=== PATIENT | female | born 1990 | race Native Hawaiian/Other Pacific Islander ===

== ENCOUNTER 2018-05-02 13:49 | Emergency (ER) | payer OTHER ==
[2018-05-02 14:10] VITALS: O2SAT 100
--- NOTE | 2018-05-02 14:59 | ED PDOC ---
HPI: Female Pain Time Seen by Provider: 05/02/18 14:15 Chief Complaint (Nursing): Female Genitourinary Chief Complaint (Provider): Female Genitourinary History Per: Patient History/Exam Limitations: no limitations Onset/Duration Of Symptoms: Days Current Symptoms Are (Timing): Still Present Additional Complaint(s): 27 y/o female with a PMHx of presents to the ED for evaluation of pelvic pain. Patient reports she is otherwise healthy and is approximately 7 weeks . Patient reports pelvic pain is intermittent and located on the right side. Patient reports pain lasts for a couple hours then goes away. Patient additionally reports of similar pain ten years ago when she was not . Patient states workup at that time was otherwise unremarkable. Patient also reports of a cheesy vaginal discharge that is chronic and resolves with monistat. Patient states she has begun care and vitamins. Denies loss of appetite, diarrhea, vomiting, urinary symptoms or vaginal bleeding. PANTRY WORKER: Hima Oliveira Last Menstral Period: 03/14/2018 : 1 Para: 0 Past Medical History Reviewed: Historical Data, Nursing Documentation, Vital Signs Vital Signs: Last Vital Signs Temp 98.4 F 05/02/18 14:07 Pulse 91 H 05/02/18 14:07 Resp 16 05/02/18 14:07 BP 137/72 05/02/18 14:07 Pulse Ox 100 05/02/18 14:07 - Medical History PMH: No Chronic Diseases - Surgical History Surgical History: No Surg Hx - Family History Family History: States: Diabetes, Hypertension - Social History Current smoker - smoking cessation education provided: No Alcohol: None Drugs: Denies - Allergies Allergies/Adverse Reactions: Allergies Allergy/AdvReac Type Severity Reaction Status Date / Time acetaminophen [From Tylenol] Allergy ITCHING Verified 05/02/18 14:10 Review of Systems ROS Statement: Except As Marked, All Systems Reviewed And Found Negative Gastrointestinal: Negative for: Vomiting, Diarrhea, Other (loss of appetite) Genitourinary Female: Positive for: Vaginal Discharge, Pelvic Pain. Negative for: Dysuria, Frequency, Hematuria, Vaginal Bleeding Physical Exam - Reviewed Nursing Documentation Reviewed: Yes Vital Signs Reviewed: Yes - Physical Exam Appears: Positive for: Non-toxic, No Acute Distress Head Exam: Positive for: ATRAUMATIC, NORMOCEPHALIC Skin: Positive for: Warm, Dry Eye Exam: Positive for: EOMI, PERRL ENT: Positive for: Pharynx Is (clear). Negative for: Tonsillar Exudate Neck: Positive for: Painless ROM, Supple Cardiovascular/Chest: Positive for: Regular Rate, Rhythm. Negative for: Murmur Respiratory: Positive for: Normal Breath Sounds. Negative for: Respiratory Distress Gastrointestinal/Abdominal: Positive for: Tenderness (to palpation of the right pelvic area. (+) McBurney's Point Tenderness. (-) German's Sign). Negative for : Mass, Guarding, Rebound Back: Positive for: Normal Inspection. Negative for: Decreased ROM Extremity: Positive for: Normal ROM. Negative for: Deformity Lymphatic: Negative for: Adenopathy Neurologic/Psych: Positive for: Alert. Negative for: Motor/Sensory Deficits - Laboratory Results Result Diagrams: 05/02/18 15:33 05/02/18 15:33 - ECG O2 Sat by Pulse Oximetry: 100 (RA) Pulse Ox Interpretation: Normal Medical Decision Making Medical Decision Making: Time: 1435 Impression: Early and pelvic pain. Differentials include but not limited to ectopic , ovarian cysts, UTI and round ligament pain. Plan: -- BMP -- Beta-HCG, Quantitative -- ED Urine Dipstick -- ED Urine -- CBC with differentials -- Chlamydia/GC RNA, TNA -- US OB Transvaginal Accession No. : [id number] Patient Name / ID : AZEB ROBERTSON / [id number] Exam Date : 05/02/2018 16:19:35 ( Approved ) Study Comment : Sex / Age : F / 27Y Creator : Kenyatta Lou MD Dictator : Kenyatta Lou MD Supervisor Beam Department : Bobbin Fixer : Kenyatta Lou MD Approver2 : Report Date : 05/02/2018 17:06:40 My Comment : Date of service: 05/02/2018 PROCEDURE: OB Pelvic Ultrasound HISTORY: early preg R pelvic pain r/o ectopic COMPARISON: None available. FINDINGS: UTERUS: Single Live intrauterine gestation. CRL measures 0.93 cm equivalent to 7 weeks and 0 day of gestational age. Gestational sac diameter measures 2.74 cm equivalent to 7 weeks and 4 days of gestational age. age (Ultrasound estimated): 7 weeks and 2 days Date of delivery (Ultrasound estimated) : 12/17/2018 Heart rate: 135 bpm. Kassi-gestational hemorrhage: None. Uterus measures 9.3 x 5.1 x 7.2 cm. No mass CERVIX: Long and closed. No cervical abnormality seen. RIGHT OVARY: Measures 5.6 x 4.7 x 5.0 cm. No mass. Normal flow. There is a 3.4 x 3.5 x 2.7 cm simple cyst and 2.8 x 2.6 x 2.7 cm simple cyst. LEFT OVARY: Measures 3.4 x 1.6 x 3.6 cm. No mass. Normal flow. FREE FLUID: None. OTHER FINDINGS: None. IMPRESSION: Single live intrauterine gestation with mean gestational age of 7 weeks and 2 days. The estimated date of delivery by ultrasound is 12/17/2018. The ultrasound dates correspond with the clinical dates. Two simple cysts in the right ovary, the larger measures 3.5 cm. No evidence for torsion. DW pt findings. Although pt has RLQ tenderness, she otherwise lacks clinical signs of appendicitis such as loss of appetite and fever. US findings are also c /w pt's site of pain. Stable for dc. Scribe Attestation: Documented by Nuno Bacon, acting as a scribe for Carmen Castillo MD. Provider Scribe Attestation: All medical record entries made by the Scribe were at my direction and personally dictated by me. I have reviewed the chart and agree that the record accurately reflects my personal performance of the history, physical exam, medical decision making, and the department course for this patient. I have also personally directed, reviewed, and agree with the discharge instructions and disposition. Disposition - Clinical Impression Clinical Impression: Ovarian cyst Counseled Patient/Family Regarding: Studies Performed, Diagnosis, Need For Followup - Disposition Referrals: Hima Oliveira DO [Staff Provider] - Disposition: Routine/Home Disposition Time: 17:40 Condition: GOOD Instructions: Ovarian Cyst (DC), - The Second Month
[2018-05-02 15:42] LABS: BASO % 0.1 % (0.0-2.0); EOS # 0.2 K/uL (0.0-0.7); EOS % 1.1 % (0.0-4.0); HEMOGLOBIN 12.7 g/dL (12.0-16.0); LYMPH % 13.3 % (20.0-40.0); MEAN CELL VOLUME 86.6 fl (81.0-99.0); MEAN CORPUSCULAR HEMOGLOBIN 30.2 pg (27.0-31.0); MEAN CORPUSCULAR HGB CONC 34.8 g/dL (33.0-37.0); MONO # 0.8 K/uL (0.0-0.8); MONO % 5.5 % (0.0-10.0); NEUT # 11.9 K/uL (1.8-7.0); RBC 4.2 Mil/uL (3.80-5.20); RED CELL DISTRIBUTION WIDTH 12.7 % (11.5-14.5); WHITE BLOOD COUNT 14.9 K/uL (4.8-10.8)
[2018-05-02 15:56] LABS: BLOOD UREA NITROGEN 12 mg/dl (7-17); GFR NON-AFRICAN AMERICAN > 60
--- NOTE | 2018-05-02 17:08 | US ---
Date of service: 05/02/2018 PROCEDURE: OB Pelvic Ultrasound HISTORY: early preg R pelvic pain r/o ectopic COMPARISON: None available. FINDINGS: UTERUS: Single Live intrauterine gestation. CRL measures 0.93 cm equivalent to 7 weeks and 0 day of gestational age. Gestational sac diameter measures 2.74 cm equivalent to 7 weeks and 4 days of gestational age. age (Ultrasound estimated): 7 weeks and 2 days Date of delivery (Ultrasound estimated) : 12/17/2018 Heart rate: 135 bpm. Kassi-gestational hemorrhage: None. Uterus measures 9.3 x 5.1 x 7.2 cm. No mass CERVIX: Long and closed. No cervical abnormality seen. RIGHT OVARY: Measures 5.6 x 4.7 x 5.0 cm. No mass. Normal flow. There is a 3.4 x 3.5 x 2.7 cm simple cyst and 2.8 x 2.6 x 2.7 cm simple cyst. LEFT OVARY: Measures 3.4 x 1.6 x 3.6 cm. No mass. Normal flow. FREE FLUID: None. OTHER FINDINGS: None. IMPRESSION: Single live intrauterine gestation with mean gestational age of 7 weeks and 2 days. The estimated date of delivery by ultrasound is 12/17/2018. The ultrasound dates correspond with the clinical dates. Two simple cysts in the right ovary, the larger measures 3.5 cm. No evidence for torsion.
[2018-05-02 17:59] VITALS: BP 132/70; PULSE 85; RESP 18; TEMP 98.2
== END 2018-05-02 17:50 | disposition home or self-care (01) ==
LOC: H.ER 13:49
DX: O26.891 Other specified pregnancy related conditions, first trimester (principal); N83.201 Unspecified ovarian cyst, right side; Z3A.01 Less than 8 weeks gestation of pregnancy

== ENCOUNTER 2018-12-06 03:35 | Inpatient (IN) | payer OTHER ==
[2018-12-06 03:50] VITALS: BMI 25.2
[2018-12-06] MEDS ORDERED: Lactated Ringer's 1,000 ML IV ONE (04:35)
[2018-12-06] MEDS ORDERED: Oxytocin 30 UNIT in NS 500 ml 30 UNITS/500 ML BAG IV ONE (04:37)
[2018-12-06] MEDS ORDERED: OXYTOCIN/0.9 % NS 20 UNIT/1,000 ML BAG IV SCH (04:45)
[2018-12-06] MEDS ORDERED: Lactated Ringer's 1,000 ML IV SCH (04:45)
--- NOTE | 2018-12-06 04:46 | OBADHP ---
Datetime: 12/06/2018 04:30 Admit Comment, IP Provider: 27 yo 38.1 wk present to [facility] Due to contraction q8min sinc e 1:50 12/06/18 and mucus plug, otherwise patient denies any vaginal bleeding, water gush. Pt report having GDM during controlled with diet, last glucose check 90 at 21:00 12/05/18. Pt report good fe mounika movement. last us was today pt report baby vertex. Allergy Tylenol ( itchy hand and feet) PCP: Dr. 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 4:12 Assessment and plan 27 yo 38.1 wk present to [facility] Due to contraction q8min sinc e 1:50 12/06/18 and mucus plug. W ill be admitted to Unit Vitals wnl strip reactive Patient is not in a cute distress Cervix 6, 90,-2 Will start LR 1 L at 999 Start LR 1L 125 Pit after placenta delivery Anesthesia on the case CBC and type in screen Initiate labor protocol Ysabri PGY1 Case discussed wtih Dr smith OB Hospitalist Addendum: Pt seen and examined by me. Agree a/ above. 27 yo G1 at 38+1 wks admitt ed to L_D in labor. FHT reactive. GBS negative. (ES) Pelvic Type - PN: Adequate Extremities - PN: Normal Abdomen - PN: Normal Back - PN: Normal Breast - PN: Not Done Lungs - PN: Normal Heart - PN: Normal Thyroid - PN: Normal Neurologic - PN: Normal HEENT - PN: Normal General - PN: Normal Presentation-Admit: Vertex FHR - Baseline A Provider: 140 Comments, ACOG Physical Exam: HEart no extra heart sound lung clear abd non tender BS+ Cervix 6,90,-2 Gestation - Est Wks by US: 38.1 Vital Signs Provider: Reviewed; Within Normal Limits IP Chief Complaint: Uterine contractions NICHD Variability Prov Fetus A: Moderate 6-25bpm NICHD Accel Fetus A IP Provider: [id number] FHR Category Provider Fetus A: Category I NICHD Decel Fetus A IP Provider: None Dilatation, Provider: 5 Effacement, Provider: 90 Station, Provider: -2 Genitourinary Exam: Normal DTRs - PN: Not Done EGA AdmitDate IP: 38.1 IP Adm Impression: Term, intrauterine Datetime: 12/06/2018 04:06 Membranes, Provider: Bulging IP Admit Plan: Admit to unit; Initiate labor protocol
[2018-12-06 05:40] LABS: BASO % 0.3 % (0.0-2.0); EOS # 0.1 K/uL (0.0-0.7); EOS % 0.5 % (0.0-4.0); HEMOGLOBIN 12.9 g/dL (12.0-16.0); LYMPH # 1.7 K/uL (1.0-4.3); LYMPH % 13.7 % (20.0-40.0); MEAN CELL VOLUME 86.6 fl (81.0-99.0); MEAN CORPUSCULAR HEMOGLOBIN 29.9 pg (27.0-31.0); MEAN CORPUSCULAR HGB CONC 34.6 g/dL (33.0-37.0); MEAN PLATELET VOLUME 9.4 fl (7.2-11.7); MONO # 0.6 K/uL (0.0-0.8); MONO % 5.3 % (0.0-10.0); NEUT # 9.7 K/uL (1.8-7.0); NEUT % 80.2 % (50.0-75.0); RBC 4.33 Mil/uL (3.80-5.20); RED CELL DISTRIBUTION WIDTH 13.7 % (11.5-14.5); WHITE BLOOD COUNT 12.1 K/uL (4.8-10.8)
[2018-12-06] MEDS ORDERED: Fentanyl/Bupivacaine HCl 250 ML EPI ONE (07:09)
[2018-12-06] MEDS ORDERED: Lidocaine 1% Inj (20ml) ONE (09:13)
--- NOTE | 2018-12-06 09:13 | OBPN ---
Datetime: 12/06/2018 09:07 IP Procedures: Sterile Vag Exam IP Progress Plan: Continue present management Contraction Comments Provider: q2-5min FHR - Baseline A Provider: 140s IP Progress Note Comment: Patient resting comfortably without complaints. heart tracing categ ory 1. Plan to continue current management. Discussed plan with patient and all patient questions a nswered. Vital Signs Provider: Reviewed; Within Normal Limits NICHD Accel Fetus A IP Provider: 15X15 FHR Category Provider Fetus A: Category I NICHD Variability Prov Fetus A: Moderate 6-25bpm Dilatation, Provider: 9 Effacement, Provider: 100 Station, Provider: 0 NICHD Decel Fetus A IP Provider: None Datetime: 12/06/2018 04:30 Gestation - Est Wks by US: 38.1 Presentation-Admit: Vertex Datetime: 12/06/2018 04:06 Membranes, Provider: Bulging
[2018-12-06] MEDS ORDERED: Oxycodone/Acetaminophen 5/325 mg Tab PO PRN ×4 (13:31→16:56)
[2018-12-06] MEDS ORDERED: Benzocaine/Menthol SPRAY TOP PRN ×2 (13:31→16:56)
--- NOTE | 2018-12-07 08:58 | OBDS ---
DELIVERY PERSONNEL Delivery Doctor: Dr. Zamora Level Vial Inspector: Emily Bahena RN; Comfort Vera RN Anesthesiologist: Dr. Petros Miller MATERNAL INFORMATION Delivery Anesthesia: Epidural Medications in Delivery: Pitocin 30mu in 500 ml Placenta Cultured: No Maternal Complications: None Provider Comments: 27 year old G1 admitted with spontaneous labor. Progressed to normal spontaneous vaginal delivery of live male infact at 12:51, position COLT over intact perineum with epidural anest hesia. was placed on maternal adbomen and delayed cord clamping performed. Apgars were 9_9, no excessive resuscitation was required. No meconium or nuchal cord present. Spontaneous delivery of pl acenta with 3-vessel cord. See laceration repair note. QBL 100cc. Attending Dr. Banerjee was present for delivery. Danni Zamora MD OB Fellow LABOR SUMMARY EDC: 12/19/2018 00:00 No. Babies in Womb: 0 Attempted: No Labor Anesthesia: Epidural LABOR INFORMATION Reason for Induction: Not Applicable Onset of Labor: 12/06/2018 01:45 Complete Dilatation: 12/06/2018 11:44 Oxytocin: N/A Group B Beta Strep: Negative Antibiotics # of Doses: 0 Antibiotics Time of Last Dose: n/a Steroids Given: None Reason Steroids Not Administered: Not Applicable MEMBRANES Membranes Rupture Method: Spontaneous Rupture of Membranes: 12/06/2018 08:07 Length of Rupture (hrs): 4.73 Amniotic Fluid Color: Clear Amniotic Fluid Amount: Small Amniotic Fluid Odor: Normal STAGES OF LABOR Stage 1 hrs: 9 Stage 1 min: 59 Stage 2 hrs: 1 Stage 2 min: 7 Stage 3 hrs: 0 Stage 3 min: 5 Total Time in Labor hrs: 11 Total Time in Labor min: 11 VAGINAL DELIVERY Episiotomy: None Laceration Extension: Second Degree Laceration Type: Perineal Laceration Repair: Yes Laceration Repair Note: A 2-0 Vicryl was used to repair the laceration in the usual fashion. Hemosta sis was adequate after repair. Initial Vag Sponge Count: 10 Final Vag Sponge Count: 10 Initial Vag Sharps Count: 2 Final Vag Sharps Count: 2 Sponge Count Correct: Yes Sharps Count Correct: Yes BABY A INFORMATION Delivery Date/Time: 12/06/2018 12:51 Method of Delivery: Vaginal Born in Route : No : N/A Forceps: N/A Vacuum Extraction: N/A Shoulder Dystocia : No SHOULDER DYSTOCIA BABY A Infant Delivery Date/Time: 12/06/2018 12:51 PRESENTATION/POSITION BABY A Presentation: Cephalic Cephalic Presentation: N/A Breech Presentation: N/A PLACENTA INFORMATION BABY A Placenta Delivery Time : 12/06/2018 12:56 Placenta Method of Delivery: Spontaneous Placenta Status: Delivered SCORES BABY A Heart Rate 1 min: >100 bpm Resp Effort 1 min: Good Cry Reflex Irritability 1 min: Cough or Sneeze or Pulls Away Muscle Tone 1 min: Active Motion Color 1 min: Body [place], Extremities Blue Resuscitation Effort 1 min: Tactile Stimulation SCORE 1 MIN: 9 Heart Rate 5 min: >100 bpm Resp Effort 5 min: Good Cry Reflex Irritability 5 min: Cough or Sneeze or Pulls Away Muscle Tone 5 min: Active Motion Color 5 min: Body [place], Extremities Blue Resuscitation Effort 5 min: N/A SCORE 5 MIN: 9 INFORMATION BABY A Gestational Age at Delivery: 38.1 Gestational Status: Term Infant Outcome : Liveborn Condition : Stable Sex: Male IDENTIFICATION/MEDS BABY A ID Band Number: [id number] ID Band Location: Left Leg; Left Arm WEIGHT/LENGTH BABY A Infant Birthweight (gms): 2880 Weight (lb): 6 Infant Weight (oz): 6 CORD INFORMATION BABY A No. Cord Vessels: 3 Nuchal Cord : N/A Cord Blood Taken: Yes Infant Suction: None
--- NOTE | 2018-12-07 08:58 | OBDS ---
DELIVERY PERSONNEL Delivery Doctor: Dr. Zamora Piano Sounding Board Matcher: Emily Bahena RN; Comfort Vera RN Anesthesiologist: Dr. Petros Miller MATERNAL INFORMATION Delivery Anesthesia: Epidural Medications in Delivery: Pitocin 30mu in 500 ml Placenta Cultured: No Maternal Complications: None Provider Comments: 27 year old G1 admitted with spontaneous labor. Progressed to normal spontaneous vaginal delivery of live male infact at 12:51, position COLT over intact perineum with epidural anest hesia. was placed on maternal adbomen and delayed cord clamping performed. Apgars were 9_9, no excessive resuscitation was required. No meconium or nuchal cord present. Spontaneous delivery of pl acenta with 3-vessel cord. See laceration repair note. QBL 100cc. Attending Dr. Banerjee was present for delivery. Danni Zamora MD OB Fellow LABOR SUMMARY EDC: 12/19/2018 00:00 No. Babies in Womb: 0 Attempted: No Labor Anesthesia: Epidural LABOR INFORMATION Reason for Induction: Not Applicable Onset of Labor: 12/06/2018 01:45 Complete Dilatation: 12/06/2018 11:44 Oxytocin: N/A Group B Beta Strep: Negative Antibiotics # of Doses: 0 Antibiotics Time of Last Dose: n/a Steroids Given: None Reason Steroids Not Administered: Not Applicable MEMBRANES Membranes Rupture Method: Spontaneous Rupture of Membranes: 12/06/2018 08:07 Length of Rupture (hrs): 4.73 Amniotic Fluid Color: Clear Amniotic Fluid Amount: Small Amniotic Fluid Odor: Normal STAGES OF LABOR Stage 1 hrs: 9 Stage 1 min: 59 Stage 2 hrs: 1 Stage 2 min: 7 Stage 3 hrs: 0 Stage 3 min: 5 Total Time in Labor hrs: 11 Total Time in Labor min: 11 VAGINAL DELIVERY Episiotomy: None Laceration Extension: Second Degree Laceration Type: Perineal Laceration Repair: Yes Laceration Repair Note: A 2-0 Vicryl was used to repair the laceration in the usual fashion. Hemosta sis was adequate after repair. Initial Vag Sponge Count: 10 Final Vag Sponge Count: 10 Initial Vag Sharps Count: 2 Final Vag Sharps Count: 2 Sponge Count Correct: Yes Sharps Count Correct: Yes BABY A INFORMATION Delivery Date/Time: 12/06/2018 12:51 Method of Delivery: Vaginal Method of Delivery: Vaginal Method of Delivery: Vaginal Method of Delivery: Vaginal Method of Delivery: Vaginal Method of Delivery: Vaginal Method of Delivery: Vaginal Born in Route : No : N/A Forceps: N/A Vacuum Extraction: N/A Shoulder Dystocia : No SHOULDER DYSTOCIA BABY A Delivery Date/Time: 12/06/2018 12:51 PRESENTATION/POSITION BABY A Presentation: Cephalic Cephalic Presentation: N/A Breech Presentation: N/A PLACENTA INFORMATION BABY A Placenta Delivery Time : 12/06/2018 12:56 Placenta Method of Delivery: Spontaneous Placenta Method of Delivery: Spontaneous Placenta Status: Delivered SCORES BABY A Heart Rate 1 min: >100 bpm Resp Effort 1 min: Good Cry Reflex Irritability 1 min: Cough or Sneeze or Pulls Away Muscle Tone 1 min: Active Motion Color 1 min: Body [place], Extremities Blue Resuscitation Effort 1 min: Tactile Stimulation SCORE 1 MIN: 9 Heart Rate 5 min: >100 bpm Resp Effort 5 min: Good Cry Reflex Irritability 5 min: Cough or Sneeze or Pulls Away Muscle Tone 5 min: Active Motion Color 5 min: Body [place], Extremities Blue Resuscitation Effort 5 min: N/A SCORE 5 MIN: 9 INFORMATION BABY A Gestational Age at Delivery: 38.1 Gestational Status: Term Infant Outcome : Liveborn Condition : Stable Infant Sex: Male Sex: Male IDENTIFICATION/MEDS BABY A ID Band Number: [id number] ID Band Location: Left Leg; Left Arm WEIGHT/LENGTH BABY A Birthweight (gms): 2880 Weight (lb): 6 Infant Weight (oz): 6 CORD INFORMATION BABY A No. Cord Vessels: 3 Nuchal Cord : N/A Cord Blood Taken: Yes Infant Suction: None
--- NOTE | 2018-12-07 10:57 | OBPPN ---
Datetime: 12/07/2018 10:48 PP Pain Prov: Within normal limits PP Nausea Prov: Denies PP Flatus Prov: Yes PP Breasts Prov: Normal PP Heart Prov: Normal PP Lungs Prov: Normal PP Abdomen/Uterus Prov: Normal PP Lochia Prov: Normal PP Vulva/Perineum Prov: Normal PP CVA Tenderness Prov: Normal PP Extremities Prov: Normal PP Comments Phys Exam Prov: Fundus firm under umbilicus PP Impression Prov: Normal progression PP Plan Prov: Continue present management PP Progress Note Prov: Patient denies CP, no N/V, tolerating Po diet, ambulating/voiding well, mild lochia, abdominal pain tolerable with meds A/P PPD #1 1. Continue routine orders 2. Encourage ambulation and IP PP Procedures: None Vital Signs Provider PP: Reviewed; Within Normal Limits
--- NOTE | 2018-12-08 10:24 | OBPPN ---
Datetime: 12/08/2018 10:20 PP Pain Prov: Within normal limits PP Nausea Prov: Denies PP Flatus Prov: Yes PP Breasts Prov: Normal PP Heart Prov: Normal PP Lungs Prov: Normal PP Abdomen/Uterus Prov: Normal PP Lochia Prov: Normal PP Vulva/Perineum Prov: Normal PP CVA Tenderness Prov: Normal PP Extremities Prov: Normal PP Comments Phys Exam Prov: Fundus firm under umbilicus PP Impression Prov: Normal progression PP Plan Prov: Continue present management PP Progress Note Prov: Patient denies CP, no N/V, tolerating Po diet, ambulating/voiding welll, mild lochia, abdominal pain tolerable with meds A/P PPD #2 1. discharge pt home 2. discharge instructions reviewed IP PP Procedures: None Vital Signs Provider PP: Reviewed; Within Normal Limits
--- NOTE | 2018-12-08 10:24 | OBDCSUM ---
Datetime: 12/08/2018 07:59 Discharged to, Provider: Home Follow up at, Provider: [facility]. Disch Instr Activity: Normal activity Disch Instr Diet: Regular Discharge Diagnosis, Provider: Term Delivered Discharge Time: 12/08/2018 10:22 Follow up in weeks, Provider: in 4 to 6 weeks.
[2018-12-08 17:15] VITALS: BP 104/65; PULSE 96; RESP 20; TEMP 98.6; O2SAT 98
== END 2018-12-08 12:15 | disposition home or self-care (01) | DRG 807 ==
LOC: H.EROB2 03:35 → H.L&D 04:35 → H.OB/GYN 18:02
PROVIDERS: ADMIT Obstetrics & Gynecology; ATTEND Obstetrics & Gynecology
PROC: 10E0XZZ Delivery of Products of Conception, External Approach (ICD-10-PCS; principal; 2018-12-06)
PROC: 0KQM0ZZ Repair Perineum Muscle, Open Approach (ICD-10-PCS; 2018-12-06)
PROC: 10E0XZZ Delivery of Products of Conception, External Approach (ICD-10-PCS; 2018-12-06)
DX: O70.1 Second degree perineal laceration during delivery (principal); Z37.0 Single live birth; Z3A.38 38 weeks gestation of pregnancy; Z83.3 Family history of diabetes mellitus; Z82.49 Family history of ischemic heart disease and other diseases of the circulatory system; Z86.32 Personal history of gestational diabetes